=== PATIENT | female | born 1930 | race African-American/Black ===

== ENCOUNTER 2018-03-04 12:17 | Emergency (ER) | payer OTHER ==
[~2018-03-04] VITALS: Ht 165.1 cm; Wt 78.0 kg
[~2018-03-04 12:17] MED LIST: AMLO5TAB88; ASPI-1079; ATEN-42; DOCUSATE PO; FURO-152 PO; MULT-783 PO; Olanzapine PO; SENNA PO; SIMV20TA6; TAMS-11 PO; hydralazine PO; losartan PO; trazodone PO
[2018-03-04] MEDS ORDERED: ASPIRIN 81MG TABLET PO STA (13:47)
[2018-03-04 14:51] LABS: BASOPHILS % 0.5 % (0.0-2.0); EOSINOPHILS % 3.7 % (0.0-5.0); HEMATOCRIT. 30.8 % (36.0-48.0); HEMOGLOBIN. 10.4 g/dL (12.0-16.0); LYMPHOCYTES % 24.1 % (20.0-50.0); MEAN CORPUSCULAR HEMOGLOBIN 32.6 pg (28.0-32.0); MEAN CORPUSCULAR VOLUME 96.4 fL (81.0-99.0); MEAN PLATELET VOLUME 8.1 fl (7.4-10.4); MONOCYTES % 5.4 % (2.0-8.0); NEUTROPHILS % 66.3 % (40.0-76.0); PLATELET 257 x1000/uL (130-400); RED CELL DISTRIBUTION WIDTH 12.6 % (11.6-14.6)
[2018-03-04 14:55] LABS: CHLORIDE 104 mEq/L (98-107)
[2018-03-04 14:57] LABS: PARTIAL THROMBOPLASTIN TIME 28.2 sec (23.4-31.0); PROTHROMBIN TIME 10.4 sec (9.4-11.6)
[2018-03-04 16:56] VITALS: BP 164/71
== END 2018-03-04 18:14 | disposition short-term general hospital (02) ==
LOC: ER 12:17 → CANBEDREQ 15:35 → ER 18:14
DX: R07.89 Other chest pain (principal); M25.511 Pain in right shoulder; I11.0 Hypertensive heart disease with heart failure; I50.9 Heart failure, unspecified; E78.00 Pure hypercholesterolemia, unspecified; Z88.2 Allergy status to sulfonamides; Z88.5 Allergy status to narcotic agent; W22.03XA Walked into furniture, initial encounter; Y93.89 Activity, other specified; Y92.89 Other specified places as the place of occurrence of the external cause; Y99.8 Other external cause status
CPT/HCPCS: 36415; 71045; 73030; 80053; 83690; 83880; 84484; 85025; 85610; 85730; 93005; 99285